=== PATIENT | male | born 1980 | race Caucasian/White ===

== ENCOUNTER 2022-02-17 20:14 | Inpatient (IN) | payer BC ==
[2022-02-06] MEDS: KCL 20 MEQ TAB (K-DUR) PO SCH (06:20)
[~2022-02-17] VITALS: Ht 175.3 cm; Wt 82.5 kg
[2022-02-17] MEDS ORDERED: LACTATED RINGERS 1,000 ML IV ONE (20:30)
[2022-02-17 20:35] LABS: BASOPHILS # (AUTO) 0.1 10^3/uL (0.0-0.1); BASOPHILS % (AUTO) 1 % (0-10); EOSINOPHILS % (AUTO) 2 % (0-10); MEAN CORPUSCULAR HGB CONC 33 g/dL (32-36)
--- NOTE | 2022-02-17 20:37 | ED Trauma-Multisystem ---
General Chief Complaint: Trauma-Non Activation Stated Complaint: LEFT RIB PAIN Source of Information: Patient, EMS History of Present Illness Date Seen by Provider: Feb 17, 2022 Time Seen by Provider: 20:15 Initial Comments PT ARRIVES VIA EMS [place] PT WAS PLAYING SOFTBALL AND COLLIDED WITH ANOTHER PLAYER, AND GOT "KNEED" IN LEFT RIBS/CHEST/UPPER ABDOMEN AREA C/O SEVERE PAIN TO THE AREA HAS PAIN WITH BREATHING BUT DOES NOT ACTUALLY FEEL SHORT OF BREATH HAD NAUSEA AND VOMITED X 1 EMS GAVE ZOFRAN 4 MG AND FENTANYL 100 MCG IV WITH SOME IMPROVEMENT IN SYMPTOMS EMS REPORT O2 SAT 90% ON ROOM AIR, BUT PT WAS BREATHING SHALLOW DUE TO PAIN --O2 SATS UP TO 98% ON 2L/NC NO HEAD INJURY OR LOSS OF CONSCIOUSNESS NO NECK OR BACK PAIN NO EXTREMITY PAIN OR INJURY NO CHRONIC ILLNESSES PCP: SAIMA Allergies and Home Medications Allergies Coded Allergies: No Known Drug Allergies (Unverified , 02/17/22) Patient Home Medication List Home Medication List Reviewed: Yes Docusate Sodium (Colace) 100 Mg Capsule, 100 MG PO BID Prescribed by: VENKAT SIMEON on 02/20/22 1206 Hydrocodone Bit/Acetaminophen (HYDROcodone/APAP 10/325 TABLET) 1 Ea Tab, 1 EA PO Q4H PRN for PAIN-MODERATE (5-7) Prescribed by: VENKAT SIMEON on 02/20/22 1207 Methocarbamol (Methocarbamol) 500 Mg Tablet, 500 MG PO TID Prescribed by: VENKAT SIMEON on 02/20/22 1206 Discontinued Medications Acetaminophen (Tylenol Extra Strength) 500 Mg Tablet, 1,000 MG PO Q8H PRN for PAIN-MILD (1-4), (Reported) Entered as Reported by: PABLO DIALLO on 02/18/22 100 Last Action: Reviewed Ibuprofen (Ibuprofen) 200 Mg Tablet, 400-600 MG PO Q8H PRN for PAIN-MILD (1-4), (Reported) Entered as Reported by: PABLO DIALLO on 02/18/22 100 Last Action: Reviewed Review of Systems Review of Systems Constitutional: no symptoms reported; No dizziness Eyes: No Symptoms Reported Ears: No Symptoms Reported Nose: No Symptoms Reported Mouth: No Symptoms Reported Throat: No Symptoms to Report Respiratory: see HPI Cardiovascular: See HPI Gastrointestinal: see HPI Genitourinary: no symptoms reported Musculoskeletal: no symptoms reported Skin: no symptoms reported Psychiatric/Neurological: No Symptoms Reported Past Xwyzcrj-Duozgl-Rtcnqh Hx Patient Social History Tobacco Use?: No Substance use?: Yes Substance type: Marijuana Substance frequency: Once in a while Alcohol Use?: Yes Alcohol Frequency: Couple times a week Past Medical History Surgeries: Yes (WISDOM TEETH) Respiratory: No Cardiac: No Neurological: No Genitourinary: No Gastrointestinal: No Musculoskeletal: No Endocrine: No HEENT: No Cancer: No Did You Recieve Any Treatments: No Psychosocial: No Integumentary: No Blood Disorders: No Physical Exam Vital Signs Vital Signs - First Documented 02/17/22 20:18 Temp 36.3 Pulse 114 Resp 18 B/P (MAP) 114/76 (89) Pulse Ox 94 Height, Weight, BMI Height: '" Weight: lbs. oz. kg; BMI Method: General Appearance: No Apparent Distress, WD/WN, Other (LOOKS UNCOMFORTABLE, HOLDING LEFT RIB AREA) Head: No Evidence of Injury Eyes: Bilateral Eye Normal Inspection, Bilateral Eye PERRL Ears, Nose, Throat: Hearing Grossly Normal, No Evidence of ENT Injury, No Dental Injury Neck: Full Range of Motion, Normal Inspection, Non Tender, Supple Cardiovascular: Regular Rate, Rhythm, No Edema, No JVD, No Murmur, Normal Peripheral Pulses Respiratory: Normal Breath Sounds, No Accessory Muscle Use, No Respiratory Distress, Other (MARKED TENDERNESS TO LEFT MID AND LOWER RIBS/CHEST AREA--ANTERIOR AND LATERALLY, WITH SPLINTING. NO CREPITANCE, NO SUB Q AIR. NO EXTERNAL EVIDENCE OF TRAUMA. ) Gastrointestinal: Normal Bowel Sounds, No Organomegaly, No Pulsatile Mass, Soft, Tenderness (LEFT UPPER QUADRANT. NO EXTERNAL EVIDENCE OF TRAUMA TO THIS AREA. MUCH GUARDING AND SPLINTING OF AREA) Back: Normal Inspection, No CVA Tenderness, No Vertebral Tenderness Extremity: Normal Capillary Refill, Normal Inspection, Normal Range of Motion, Non Tender, No Calf Tenderness, No Pedal Edema Neurologic/Psychiatric: Alert, Oriented x3, No Motor/Sensory Deficits, institutional cook II- XII Norm as Tested Skin: Normal Color, Warm/Dry Progress/Results/Core Measures Results/Orders Lab Results Laboratory Tests Test 02/17/22 20:26 02/17/22 20:52 Range/Units White Blood Count 9.0 4.3-11.0 10^3/uL Red Blood Count 4.59 4.30-5.52 10^6/uL Hemoglobin 13.8 13.3-17.7 g/dL Hematocrit 42 40-54 % Mean Corpuscular Volume 92 80-99 fL Mean Corpuscular Hemoglobin 30 25-34 pg Mean Corpuscular Hemoglobin Concent 33 32-36 g/dL Red Cell Distribution Width 12.6 10.0-14.5 % Platelet Count 234 130-400 10^3/uL Mean Platelet Volume 9.9 9.0-12.2 fL Immature Granulocyte % (Auto) 1 % Neutrophils (%) (Auto) 75 42-75 % Lymphocytes (%) (Auto) 15 12-44 % Monocytes (%) (Auto) 7 0-12 % Eosinophils (%) (Auto) 2 0-10 % Basophils (%) (Auto) 1 0-10 % Neutrophils # (Auto) 6.7 1.8-7.8 10^3/uL Lymphocytes # (Auto) 1.4 1.0-4.0 10^3/uL Monocytes # (Auto) 0.6 0.0-1.0 10^3/uL Eosinophils # (Auto) 0.2 0.0-0.3 10^3/uL Basophils # (Auto) 0.1 0.0-0.1 10^3/uL Immature Granulocyte # (Auto) 0.1 0.0-0.1 10^3/uL Percent Immature Platelet Fraction 1.2 0.0-7.6 % Sodium Level 139 135-145 MMOL/L Potassium Level 4.7 3.6-5.0 MMOL/L Chloride Level 105 98-107 MMOL/L Carbon Dioxide Level 16 L 21-32 MMOL/L Anion Gap 18 H 5-14 MMOL/L Blood Urea Nitrogen 19 H 7-18 MG/DL Creatinine 1.34 H 0.60-1.30 MG/DL Estimat Glomerular Filtration Rate 69 BUN/Creatinine Ratio 14 Glucose Level 113 H 70-105 MG/DL Calcium Level 9.0 8.5-10.1 MG/DL Corrected Calcium 8.5-10.1 MG/DL Magnesium Level 1.7 1.6-2.4 MG/DL Total Bilirubin 0.7 0.1-1.0 MG/DL Aspartate Amino Transf (AST/SGOT) 35 H 5-34 U/L Alanine Aminotransferase (ALT/SGPT) 22 0-55 U/L Alkaline Phosphatase 55 40-136 U/L Total Creatine Kinase 286 H 30-200 U/L Creatine Kinase MB 3.1 <6.6 NG/ML Myoglobin 131.6 H 10.0-92.0 NG/ML Troponin I < 0.028 <0.028 NG/ML B-Type Natriuretic Peptide 12.8 <100.0 PG/ML Total Protein 7.5 6.4-8.2 GM/DL Albumin 4.7 H 3.2-4.5 GM/DL Serum Alcohol 71 H <10 MG/DL Prothrombin Time 13.1 12.2-14.7 SEC INR Comment 1.0 0.8-1.4 Activated Partial Thromboplast Time 23 L 24-35 SEC My Orders Orders - JOAQUIN ESPANA DO Ed Iv/Invasive Line Start (02/17/22 20:20) Ekg Tracing (02/17/22 20:20) O2 (02/17/22 20:20) Monitor-Rhythm Ecg Trace Only (02/17/22 20:20) Chest 1 View, Ap/Pa Only (02/17/22 20:20) Alcohol (02/17/22 20:20) Bnp Jayesh (02/17/22 20:20) Cbc With Automated Diff (02/17/22 20:20) Comprehensive Metabolic Panel (02/17/22 20:20) Creatine Kinase (02/17/22 20:20) Creatine Kinase Mb (02/17/22 20:20) Drug Screen Stat (Urine) (02/17/22 20:20) Magnesium (02/17/22 20:20) Protime With Inr (02/17/22 20:20) Partial Thromboplastin Time (02/17/22 20:20) Ua Culture If Indicated (02/17/22 20:20) Myoglobin Serum (02/17/22 20:20) Troponin I [place] (02/17/22 20:20) Ed Iv/Invasive Line Start (02/17/22 20:20) Lactated Ringers (Lr 1000 Ml Iv Solution (02/17/22 20:30) Ct Chest/Abdomen/Pelvis W (02/17/22 20:20) Iohexol Injection (Omnipaque 350 Mg/Ml 1 (02/17/22 21:00) Received Contrast (Hold Metformin- Contr (02/17/22 21:00) Ns (Ivpb) (Sodium Chloride 0.9% Ivpb Bag (02/17/22 21:00) Fentanyl Inj (Sublimaze Injection) (02/17/22 21:15) Morphine Injection (Morphine Injection (02/17/22 21:33) Type And Screen (02/17/22 21:44) Medications Given in ED Vital Signs/I&O 02/17/22 20:18 Temp 36.3 Pulse 114 Resp 18 B/P (MAP) 114/76 (89) Pulse Ox 94 Progress Progress Note : Progress Note GIVEN FENTANYL AND MORPHINE FOR PAIN NO DETERIORATION IN PT'S CONDITION DURING ER STAY O2 SATS REMAINED IN UPPER 90'S ON 2L/NC NO HYPOTENSION OR TACHYCARDIA Initial ECG Impression Date: Feb 17, 2022 Initial ECG Impression Time: 20:26 Initial ECG Rate: 71 Initial ECG Rhythm: Normal Sinus Diagnostic Imaging Comments CT CHEST/ABDOMEN/PELVIS--PER RADIOLOGIST REPORT AT 2140 FINDINGS: CT CHEST: The heart is normal in size. There is no pericardial effusion. There is no mediastinal adenopathy. The aorta is normal in caliber. No axillary adenopathy is seen. There is a small left pleural effusion. There is no pneumothorax. There is dependent atelectasis in the lungs. There are anterior left rib fractures of the 5th, 6th, and 7th ribs. There are lateral fractures of the left 11th and 10th ribs. There are posterior fractures of the left 11th, 10th, and 9th ribs. CT ABDOMEN AND PELVIS: The liver demonstrates no focal lesions. The spleen has a small area of hypodensity inferiorly and extending anteriorly, may represent a laceration. No significant surrounding hematoma is seen. The pancreas appears normal. The adrenal glands appear normal. The kidneys demonstrate no enhancing lesions or hydronephrosis. No free fluid or free air is seen. The appendix is normal. The bowel loops are nondistended without obstruction. No acute osseous abnormality is seen. IMPRESSION: 1. Multiple fractures of the left 5th through 11th ribs. Small left pleural effusion. No pneumothorax. 2. Small splenic laceration or contusion. No surrounding hematoma. Departure Communication (Admissions) 2140--SPOKE WITH DR. SIMEON, TRAUMA SURGEON, ACCEPTS PT FOR ADMIT. ORDERS NOTED. 2147--REPORT GIVEN TO E-ICU PHYSICIAN. ALSO SPOKE WITH Mariella ALLEN REGARDING THORACIC BLOCK VS EPIDURAL-- HE WILL DISCUSS WITH DR. THOMAS, ANESTHESIOLOGIST, WHO PERFORMS THORACIC EPIDURALS. Impression Primary Impression: BLUNT TRAUMA TO CHEST AND ABDOMEN Additional Impressions: PLEURAL EFFUSION ON CT SUPECTED PULMONARY CONTUSION Closed injury of spleen MULTIPLE LEFT RIB FRACTURES Alcohol intoxication Illicit drug use Marijuana use Disposition: ADMITTED INPATIENT Condition: Stable Admissions Decision to Admit Reason: Admit from ER (Trauma) Decision to Admit/Date: Feb 17, 2022 Time/Decision to Admit Time: 21:45 Departure-Patient Inst. Referrals: BJORN QUARLES DO (PCP/Family) Primary Care Physician Scripts Docusate Sodium (Colace) 100 Mg Capsule 100 MG PO BID, #30 CAP Prov: VENKAT SIMEON DO 02/20/22 Hydrocodone Bit/Acetaminophen (HYDROcodone/APAP 10/325 TABLET) 1 Ea Tab 1 EA PO Q4H PRN for PAIN-MODERATE (5-7), #30 TAB Prov: VENKAT SIMEON DO 02/20/22 Methocarbamol (Methocarbamol) 500 Mg Tablet 500 MG PO TID, #30 TAB Prov: VENKAT SIMEON DO 02/20/22 JOAQUIN ESPANA DO Feb 17, 2022 20:37
[2022-02-17 20:41] LABS: ALBUMIN 4.7 GM/DL (3.2-4.5); CHLORIDE 105 MMOL/L (98-107); POTASSIUM 4.7 MMOL/L (3.6-5.0); SODIUM 139 MMOL/L (135-145)
[2022-02-17 20:44] LABS: GLUCOSE 113 MG/DL (70-105); TOTAL PROTEIN 7.5 GM/DL (6.4-8.2)
[2022-02-17 20:45] LABS: BILIRUBIN,TOTAL 0.7 MG/DL (0.1-1.0); CARBON DIOXIDE 16 MMOL/L (21-32)
[2022-02-17 20:47] LABS: ALKALINE PHOSPHATASE 55 U/L (40-136)
[2022-02-17 20:48] LABS: CREATININE SERUM 1.34 MG/DL (0.60-1.30); GFR ESTIMATED 69
[2022-02-17 20:49] LABS: BUN/CREATININE RATIO 14
[2022-02-17 20:51] LABS: ALANINE AMINOTRANSFERASE 22 U/L (0-55); CREATINE KINASE 286 U/L (30-200); MAGNESIUM 1.7 MG/DL (1.6-2.4)
[2022-02-17 20:58] LABS: CREATINE KINASE MB 3.1 NG/ML (<6.6); EOSINOPHILS # (AUTO) 0.2 10^3/uL (0.0-0.3); HEMATOCRIT 42 % (40-54); HEMOGLOBIN 13.8 g/dL (13.3-17.7); LYMPHOCYTES # (AUTO) 1.4 10^3/uL (1.0-4.0); LYMPHOCYTES % (AUTO) 15 % (12-44); MEAN CORPUSCULAR HEMOGLOBIN 30 pg (25-34); MEAN CORPUSCULAR VOLUME 92 fL (80-99); MEAN PLATELET VOLUME 9.9 fL (9.0-12.2); MONOCYTES # (AUTO) 0.6 10^3/uL (0.0-1.0); MONOCYTES % (AUTO) 7 % (0-12); NEUTROPHILS # (AUTO) 6.7 10^3/uL (1.8-7.8); NEUTROPHILS % (AUTO) 75 % (42-75); PLATELET COUNT 234 10^3/uL (130-400)
[2022-02-17] MEDS ORDERED: IOHEXOL 350 MG/ML 100 ML (OMNIPAQUE 350) VIAL IV ONE (21:00)
[2022-02-17] MEDS ORDERED: NS 100 ML (IVPB) BAG IV ONE (21:00)
[2022-02-17] MEDS ORDERED: HOLD METFORMIN - RECEIVED CONTRAST 20 ML VIAL IV SCH (21:00)
[2022-02-17 21:14] LABS: PROTHROMBIN TIME PATIENT 13.1 SEC (12.2-14.7)
[2022-02-17] MEDS ORDERED: fentaNYL INJ 100 MCG/2 ML AMP IVP PRN (21:15)
[2022-02-17] MEDS ORDERED: morphine INJ 10 MG/ML 1ML (SYR OR VIAL) IVP STA (21:33)
--- NOTE | 2022-02-17 21:39 | Diagnostic Imaging Report ---
PROCEDURE: CT chest, abdomen, and pelvis with contrast. TECHNIQUE: Multiple contiguous axial images were obtained through the chest, abdomen, and pelvis after the administration of intravenous contrast. Auto Exposure Controls were utilized during the CT exam to meet ALARA standards for radiation dose reduction. INDICATION: Trauma, left chest and abdominal pain COMPARISON: None FINDINGS: CT CHEST: The heart is normal in size. There is no pericardial effusion. There is no mediastinal adenopathy. The aorta is normal in caliber. No axillary adenopathy is seen. There is a small left pleural effusion. There is no pneumothorax. There is dependent atelectasis in the lungs. There are anterior left rib fractures of the 5th, 6th, and 7th ribs. There are lateral fractures of the left 11th and 10th ribs. There are posterior fractures of the left 11th, 10th, and 9th ribs. CT ABDOMEN AND PELVIS: The liver demonstrates no focal lesions. The spleen has a small area of hypodensity inferiorly and extending anteriorly, may represent a laceration. No significant surrounding hematoma is seen. The pancreas appears normal. The adrenal glands appear normal. The kidneys demonstrate no enhancing lesions or hydronephrosis. No free fluid or free air is seen. The appendix is normal. The bowel loops are nondistended without obstruction. No acute osseous abnormality is seen. IMPRESSION: 1. Multiple fractures of the left 5th through 11th ribs. Small left pleural effusion. No pneumothorax. 2. Small splenic laceration or contusion. No surrounding hematoma. Dictated by: Dictated on workstation # [id number]
--- NOTE | 2022-02-17 21:40 | Diagnostic Imaging Report ---
HISTORY: Trauma, left rib pain TECHNIQUE: Frontal view of the chest. COMPARISON: CT from the same day. FINDINGS: The lung volumes are low. No consolidation is seen. No large effusion or pneumothorax is seen. The small left effusion is better seen on the prior CT. There is a mildly displaced lateral left 10th rib fracture. The other left rib fractures are better seen on the prior CT. IMPRESSION: 1. Displaced lateral left 10th rib fracture. Other rib fractures and small effusion are better seen on the prior CT. Dictated by: Dictated on workstation # [id number]
[2022-02-17 22:29] LABS: BILIRUBIN,URINE NEGATIVE (NEGATIVE); CLARITY,URINE CLEAR; COLOR,URINE YELLOW; GLUCOSE, URINE (UA) NEGATIVE (NEGATIVE); KETONES,URINE NEGATIVE (NEGATIVE); LEUKOCYTE ESTERASE ,URINE NEGATIVE (NEGATIVE); NITRITE,URINE NEGATIVE (NEGATIVE); PROTEIN,URINE TRACE (NEGATIVE)
[2022-02-17 22:36] LABS: BACTERIA,URINE NEGATIVE /HPF; SQUAMOUS EPITHELIAL CELL,UR 0-2 /HPF
[2022-02-17 22:41] LABS: AMPHETAMINE SCREEN, URINE NEGATIVE (NEGATIVE); BARBITURATE SCREEN URINE NEGATIVE (NEGATIVE); BENZODIAZEPINES SCREEN URINE NEGATIVE (NEGATIVE); CANNABINOID SCREEN, URINE POSITIVE (NEGATIVE); COCAINE SCREEN URINE NEGATIVE (NEGATIVE); METHADONE STAT NEGATIVE (NEGATIVE); METHAMPHETAMINE SCREEN URINE S NEGATIVE (NEGATIVE); OPIATE SCREEN URINE NEGATIVE (NEGATIVE); OXYCODONE STAT NEGATIVE (NEGATIVE); PROPOXYPHENE STAT NEGATIVE (NEGATIVE); TRICYCLIC ANTIDEPRESSANTS SCRE NEGATIVE (NEGATIVE)
--- NOTE | 2022-02-17 22:49 | Tele-ICU Progress Note ---
Subjective Date Seen by a Provider: Feb 17, 2022 Time Seen by a Provider: 22:35 Subjective/Events-last exam This virtual visit was conducted using real time audio/video. Thank you for asking us to see this patient for respiratory distress due to multiple L rib #s with flail segment. Recent events: Received knee to chest during softball game. PMH: None SH: smoking history N FH: Non-contributory ROS: as in HPI PE: VSS. O2 sat 94% on RA, 98% on 2 LPM NC. HEENT: No obvious masses, adenopathy or JVD. Chest: clear to auscultation. CV: RRR S1 S2 No murmur or added sounds. Abd: Non-tender. Bowel sounds Y. : Unremarkable. Gleason N. SERVICE CAR OPERATOR/psychiatric: Grossly intact. No obvious focal findings. Extremities: No edema. Capillary refill < 3 seconds. Skin: unremarkable. Results: Elevated BUN 19, Creat 1.35, EtOH 71. CXR: rib #s. Available chart/ vitals / labs / images reviewed. Video assessment done using teleICU camera, rest of exam as per RN. A/P: Respiratory insufficiency: Continue present management with NC. To receive thoracic block. Monitor for increasing oxygenation needs and/or need for intubation. Critical Care: critically ill patient. Cont. PRN Fentanyl, IVF. Discussed with FAIZA DUEÑAS MD. Asked RN to reach out to eICU if any questions or concerns later. Time spent with patient/coordination of care with other health professionals (mins): 22 Sepsis Event Evaluation Height, Weight, BMI Height: '" Weight: lbs. oz. kg; 25.00 BMI Method: Exam Exam Patient acknowledged, consented, and participated in this virtual visit which was conducted using real time audio/video Vital Signs Date Time Temp Pulse Resp B/P (MAP) Pulse Ox O2 Delivery O2 Flow Rate FiO2 02/17/22 20:18 36.3 114 18 114/76 (89) 94 Height & Weight Height: '" Weight: lbs. oz. kg; 25.00 BMI Method: General Appearance: No Apparent Distress, WD/WN, Other (LOOKS UNCOMFORTABLE, HOLDING LEFT RIB AREA) Neck: Full Range of Motion, Normal Inspection, Non Tender, Supple Respiratory: Normal Breath Sounds, No Accessory Muscle Use, No Respiratory Distress, Other (MARKED TENDERNESS TO LEFT MID AND LOWER RIBS/CHEST AREA--ANTERIOR AND LATERALLY, WITH SPLINTING. NO CREPITANCE, NO SUB Q AIR. NO EXTERNAL EVIDENCE OF TRAUMA. ) Cardiovascular: Regular Rate, Rhythm, No Edema, No JVD, No Murmur, Normal Peripheral Pulses Extremity: Normal Capillary Refill, Normal Inspection, Normal Range of Motion, Non Tender, No Calf Tenderness, No Pedal Edema Neurologic/Psychiatric: Alert, Oriented x3, No Motor/Sensory Deficits, dress cap maker II- XII Norm as Tested Skin: Normal Color, Warm/Dry Results Lab Laboratory Tests 02/17/22 20:26 Assessment/Plan Assessment/Plan See free text. Critical Care: Critically Ill Patient AUGIE MARTINEZ MD Feb 17, 2022 22:49
[2022-02-17] MEDS ORDERED: D5 1/2 NS W/KCL 20 MEQ/L 1,000 ML IV ONE (23:01)
[2022-02-17] MEDS: D5 1/2 NS W/KCL 20 MEQ/L 1,000 ML IV SCH (23:20)
[2022-02-17 23:26] VITALS: BP 114/76
[2022-02-17] MEDS ORDERED: METHOCARBAMOL 500 MG (ROBAXIN) TABLET PO SCH (23:30)
[2022-02-17] MEDS ORDERED: D5 1/2 NS W/KCL 20 MEQ/L 1,000 ML IV SCH (23:30)
[2022-02-17] MEDS ORDERED: ONDANSETRON 4 MG/2 ML (SDV) Z0FRAN IVP PRN (23:30)
[2022-02-17] MEDS ORDERED: morphine INJ 4 MG/ML 1 ML (VIAL/SYRINGE) IVP PRN (23:30)
[2022-02-17] MEDS ORDERED: RT-ALBUTEROL/IPRATROPIUM 3 ML (DUONEB) VIAL INH PRN (23:45)
[2022-02-18] MEDS: METHOCARBAMOL 500 MG (ROBAXIN) TABLET PO SCH ×5 (00:01→20:55)
[2022-02-18] MEDS: morphine INJ 4 MG/ML 1 ML (VIAL/SYRINGE) IV PRN ×7 (01:58→22:10)
[2022-02-18 04:48] LABS: BASOPHILS % (AUTO) 0 % (0-10); EOSINOPHILS # (AUTO) 0.1 10^3/uL (0.0-0.3); EOSINOPHILS % (AUTO) 0 % (0-10); HEMATOCRIT 41 % (40-54); HEMOGLOBIN 13.6 g/dL (13.3-17.7); LYMPHOCYTES # (AUTO) 1.4 10^3/uL (1.0-4.0); LYMPHOCYTES % (AUTO) 12 % (12-44); MEAN CORPUSCULAR HEMOGLOBIN 30 pg (25-34); MEAN CORPUSCULAR HGB CONC 33 g/dL (32-36); MEAN CORPUSCULAR VOLUME 92 fL (80-99); MEAN PLATELET VOLUME 10.3 fL (9.0-12.2); MONOCYTES # (AUTO) 0.9 10^3/uL (0.0-1.0); MONOCYTES % (AUTO) 8 % (0-12); NEUTROPHILS # (AUTO) 8.9 10^3/uL (1.8-7.8); NEUTROPHILS % (AUTO) 78 % (42-75); PLATELET COUNT 223 10^3/uL (130-400); WHITE BLOOD COUNT 11.3 10^3/uL (4.3-11.0)
[2022-02-18 04:56] LABS: ALBUMIN 4.1 GM/DL (3.2-4.5); POTASSIUM 4.2 MMOL/L (3.6-5.0)
[2022-02-18 04:57] LABS: CALCIUM 8.4 MG/DL (8.5-10.1)
[2022-02-18 04:58] LABS: TOTAL PROTEIN 6.3 GM/DL (6.4-8.2)
[2022-02-18 05:00] LABS: BILIRUBIN,TOTAL 1.2 MG/DL (0.1-1.0)
[2022-02-18 05:01] LABS: PHOSPHORUS 3.8 MG/DL (2.3-4.7)
[2022-02-18 05:02] LABS: CREATININE SERUM 0.84 MG/DL (0.60-1.30)
[2022-02-18 05:05] LABS: MAGNESIUM 1.9 MG/DL (1.6-2.4)
[2022-02-18] MEDS: POTASSIUM CL 10MEQ/50ML IVPB 50 ML IV SCH (05:17)
[2022-02-18] MEDS: MAGNESIUM 1 GM/100 ML IVPB 100 ML IV SCH (05:17)
[2022-02-18] MEDS: KCL 20 MEQ TAB (K-DUR) PO SCH (05:18)
[2022-02-18] MEDS: D5 1/2 NS W/KCL 20 MEQ/L 1,000 ML IV SCH ×2 (05:46→11:54)
--- NOTE | 2022-02-18 07:48 | Diagnostic Imaging Report ---
INDICATION: Trauma with left rib pain. Comparison with 02/17/2022. FINDINGS: Portable chest. The lungs are well aerated and clear. Heart is not enlarged. No pneumothorax or pleural effusion. The mildly displaced distal left 10th rib fracture is again demonstrated unchanged. IMPRESSION: Left 10th rib fracture again noted with no appreciable change since previous exam. Dictated by: Dictated on workstation # [id number]
--- NOTE | 2022-02-18 08:37 | History & Physical-Surgical ---
ANITA FRYE 02/18/22 0837: History of Present Illness History of Present Illness Reason for visit/HPI CC: Left rib pain HPI: Mr. Henning is a 41 year old male with no significant past medical history who presented to the ED 02/17/2022 after a collision with another player in a softball game. Patient reports he was hit in his left torso with another player's knee. He reports sharp pain at the time of impact and rated it as a 10/10 at that time. This morning he reports the pain has been constant and sharp but it will occasionally go away if he holds still. He reports movement and deep breathing makes his pain worse. Medicine given to him at the hospital makes it better. He denies any associated symptoms at this time; he reported nausea in the ambulance. He denies radiation of the pain, it is localized to his left ribs. He reports the pain has been improving since the initial event but it is still an 8/10. Date of Admission Feb 17, 2022 at 21:45 Date Seen by a Provider: Feb 18, 2022 Time Seen by a Provider: 07:30 I consulted on this patient on 02/18/22 08:31 Attending Physician Venkat Simeon DO Admitting Physician Kaitlynn Sylvester DO Consult Allergies and Home Medications Allergies Coded Allergies: No Known Drug Allergies (Unverified , 02/17/22) Patient Home Medication List Acetaminophen (Tylenol Extra Strength) 500 Mg Tablet, 1,000 MG PO Q8H PRN for PAIN-MILD (1-4), (Reported) Entered as Reported by: PABLO DIALLO on 02/18/22 1003 Last Action: Reviewed Ibuprofen (Ibuprofen) 200 Mg Tablet, 400-600 MG PO Q8H PRN for PAIN-MILD (1-4), (Reported) Entered as Reported by: PABLO DIALLO on 02/18/22 1003 Last Action: Reviewed Past Haccnwi-Texucz-Qrkduj Hx Patient Social History Number of Children: 2 Tobacco Use?: Yes (Vaped for 5 months. Quit 8 months ago.) Smoking Status: Former Smoker Smokeless Tobacco Frequency: Never a User Use of E-Cig and/or Vaping dev: Yes Substance use?: Yes Substance type: Marijuana (1x per day for 6 months) Substance frequency: Daily Alcohol Use?: Yes Alcohol type: Beer Alcohol Frequency: Couple times a week (Drinks 3x per week. Reports drinking 6- 12 beers per sitting.) Pt feels they are or have been: No Immunizations Up To Date Tetanus Booster (TDap): Less Than 5 Years Current Status Advance Directives: No Communicates: Verbally Primary Language: Somali Preferred Spoken Language: Somali Is interpretation needed?: No Implanted or Applied Medical D: None Past Medical History Asthma (Patient reports "grown out of it") Did You Recieve Any Treatments: No Blood Disorders: No Wisom teeth surgery. Family Medical History No Pertinent Family Hx (Patient reports mother, father, and children are in good health and denies family history. No siblings.) Review of Systems Constitutional: No chills, No dizziness, No fever, No weakness EENTM: No blurred vision, No vision loss Respiratory: No cough, No dyspnea on exertion, No short of breath Cardiovascular: No chest pain (Denies cardiac chest pain. Has MSK chest pain.), No palpitations Gastrointestinal: No abdominal pain, No nausea, No vomiting Musculoskeletal: muscle pain (Left chest around ribs 5-11), muscle stiffness Physical Exam Vital Signs Vital Signs - First Documented 02/17/22 02/17/22 02/17/22 20:18 22:55 23:26 Temp 36.3 Pulse 114 Resp 18 B/P (MAP) 114/76 (89) Pulse Ox 94 O2 Delivery Nasal Cannula O2 Flow Rate 2.00 FiO2 21 Capillary Refill : Height, Weight, BMI Height: '" Weight: lbs. oz. kg; 24.92 BMI Method: General Appearance: No Apparent Distress (Occasionally winces with movement.), WD/WN HEENT: PERRL/EOMI, Moist Mucous Membranes; No Pale Conjunctivae (L), No Pale Conjunctivae (R), No Scleral Icterus (L), No Scleral Icterus (R) Neck: Normal Inspection, Non Tender, Supple; No Lymphadenopathy (L), No Lymphadenopathy (R) Respiratory: Lungs Clear, Normal Breath Sounds, No Accessory Muscle Use, No Respiratory Distress, Other (Pain over left chest wall) Cardiovascular: Regular Rate, Rhythm, No Edema, Normal Peripheral Pulses Gastrointestinal: Normal Bowel Sounds, No Organomegaly, No Pulsatile Mass, Non Tender, Soft Extremity: Normal Inspection, Non Tender, No Pedal Edema Neurologic/Psychiatric: Alert, Oriented x3, No Motor/Sensory Deficits, Normal 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, 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 Skin: Normal Color, Warm/Dry Lymphatic: No Adenopathy (Head and neck) Data Review Labs Laboratory Tests 02/17/22 20:26: White Blood Count 9.0, Red Blood Count 4.59, Hemoglobin 13.8, Hematocrit 42, Mean Corpuscular Volume 92, Mean Corpuscular Hemoglobin 30, Mean Corpuscular Hemoglobin Concent 33, Red Cell Distribution Width 12.6, Platelet Count 234, Mean Platelet Volume 9.9, Immature Granulocyte % (Auto) 1, Neutrophils (%) (Auto) 75, Lymphocytes (%) (Auto) 15, Monocytes (%) (Auto) 7, Eosinophils (%) (Auto) 2, Basophils (%) (Auto) 1, Neutrophils # (Auto) 6.7, Lymphocytes # (Auto) 1.4, Monocytes # (Auto) 0.6, Eosinophils # (Auto) 0.2, Basophils # (Auto) 0.1, Immature Granulocyte # (Auto) 0.1, Percent Immature Platelet Fraction 1.2, Sodium Level 139, Potassium Level 4.7, Chloride Level 105, Carbon Dioxide Level 16L, Anion Gap 18H, Blood Urea Nitrogen 19H, Creatinine 1.34H, Estimat Glomerular Filtration Rate 69, BUN/Creatinine Ratio 14, Glucose Level 113H, Calcium Level 9.0, Corrected Calcium , Magnesium Level 1.7, Total Bilirubin 0.7, Aspartate Amino Transf (AST/SGOT) 35H, Alanine Aminotransferase (ALT/SGPT) 22, Alkaline Phosphatase 55, Total Creatine Kinase 286H, Creatine Kinase MB 3.1, Myoglobin 131.6H, Troponin I < 0.028, B-Type Natriuretic Peptide 12.8, Total Protein 7.5, Albumin 4.7H, Serum Alcohol 71H 02/17/22 20:52: Prothrombin Time 13.1, INR Comment 1.0, Activated Partial Thromboplast Time 23L 02/17/22 22:22: Urine Color YELLOW, Urine Clarity CLEAR, Urine pH 6.0, Urine Specific [place] 1.010L, Urine Protein TRACEH, Urine Glucose (UA) NEGATIVE, Urine Ketones NEGATIVE, Urine Nitrite NEGATIVE, Urine Bilirubin NEGATIVE, Urine Urobilinogen 0.2, Urine Leukocyte Esterase NEGATIVE, Urine RBC (Auto) 3+H, Urine RBC 2-5H, Urine WBC NONE, Urine Squamous Epithelial Cells 0-2, Urine Crystals NONE, Urine Bacteria NEGATIVE, Urine Casts NONE, Urine Mucus NEGATIVE, Urine Culture Indicated NO, Urine Opiates Screen NEGATIVE, Urine Oxycodone Screen NEGATIVE, Urine Methadone Screen NEGATIVE, Urine Propoxyphene Screen NEGATIVE, Urine Barbiturates Screen NEGATIVE, Ur Tricyclic Antidepressants Screen NEGATIVE, Urine Phencyclidine Screen NEGATIVE, Urine Amphetamines Screen NEGATIVE, Urine Methamphetamines Screen NEGATIVE, Urine Benzodiazepines Screen NEGATIVE, Urine Cocaine Screen NEGATIVE, Urine Cannabinoids Screen POSITIVEH 02/18/22 04:17: White Blood Count 11.3H, Red Blood Count 4.50, Hemoglobin 13.6, Hematocrit 41, Mean Corpuscular Volume 92, Mean Corpuscular Hemoglobin 30, Mean Corpuscular Hemoglobin Concent 33, Red Cell Distribution Width 12.7, Platelet Count 223, Mean Platelet Volume 10.3, Immature Granulocyte % (Auto) 0, Neutrophils (%) (Auto) 78H, Lymphocytes (%) (Auto) 12, Monocytes (%) (Auto) 8, Eosinophils (%) (Auto) 0, Basophils (%) (Auto) 0, Neutrophils # (Auto) 8.9H, Lymphocytes # (Auto) 1.4, Monocytes # (Auto) 0.9, Eosinophils # (Auto) 0.1, Basophils # (Auto) 0.0, Immature Granulocyte # (Auto) 0.0, Sodium Level 139, Potassium Level 4.2, Chloride Level 105, Carbon Dioxide Level 21, Anion Gap 13, Blood Urea Nitrogen 13, Creatinine 0.84, Estimat Glomerular Filtration Rate 113, BUN/Creatinine Ratio 15, Glucose Level 124H, Calcium Level 8.4L, Corrected Calcium 8.3L, Magnesium Level 1.9, Total Bilirubin 1.2H, Aspartate Amino Transf (AST/SGOT) 24, Alanine Aminotransferase (ALT/SGPT) 19, Alkaline Phosphatase 48, Total Protein 6.3L, Albumin 4.1, Phosphorus Level 3.8 Radiology Date of Exam:02/17/22 CT CHEST/ABDOMEN/PELVIS W PROCEDURE: CT chest, abdomen, and pelvis with contrast. TECHNIQUE: Multiple contiguous axial images were obtained through the chest, abdomen, and pelvis after the administration of intravenous contrast. Auto Exposure Controls were utilized during the CT exam to meet ALARA standards for radiation dose reduction. INDICATION: Trauma, left chest and abdominal pain COMPARISON: None FINDINGS: CT CHEST: The heart is normal in size. There is no pericardial effusion. There is no mediastinal adenopathy. The aorta is normal in caliber. No axillary adenopathy is seen. There is a small left pleural effusion. There is no pneumothorax. There is dependent atelectasis in the lungs. There are anterior left rib fractures of the 5th, 6th, and 7th ribs. There are lateral fractures of the left 11th and 10th ribs. There are posterior fractures of the left 11th, 10th, and 9th ribs. CT ABDOMEN AND PELVIS: The liver demonstrates no focal lesions. The spleen has a small area of hypodensity inferiorly and extending anteriorly, may represent a laceration. No significant surrounding hematoma is seen. The pancreas appears normal. The adrenal glands appear normal. The kidneys demonstrate no enhancing lesions or hydronephrosis. No free fluid or free air is seen. The appendix is normal. The bowel loops are nondistended without obstruction. No acute osseous abnormality is seen. IMPRESSION: 1. Multiple fractures of the left 5th through 11th ribs. Small left pleural effusion. No pneumothorax. 2. Small splenic laceration or contusion. No surrounding hematoma. Assessment/Plan Assessment/Plan Admission Diagonsis Splenic laceration Rib fractures Left pleural effusion Excessive alcohol use Substance use Assessment/Plan Assessment: Splenic laceration - Likely grade I laceration - No obvious signs of hematoma or acute bleeding Rib fractures - Left ribs 5-11. CT confirmed - No signs of flail chest or other acute abnormalities Leukocytosis - Elevated WBC at 11.3 d/t acute trauma. - Trend Left pleural effusion - Small, confirmed on CXR. - Continue to monitor. No signs of pneumothorax Excessive alcohol use Substance use Plan: Continue IVF and pain control as needed. Currently receiving Lortab, methocarbamol, and morphine. Anesthesia has been consulted regarding epidural for pain relief Encourage ambulation and ICS to help prevent pneumonia or atelectasis SCD for DVT ppx. Hold anticoagulation d/t splenic laceration Monitor Hgb level closely and watch for signs of acute bleed d/t splenic laceration Conservative management for splenic laceration at this time. No surgical intervention needed at this time. Anticipate inpatient stay of > 2 days at this time. Consider moving from ICU to 4th floor tomorrow depending on patient status at that time. VENKAT SIMEON DO 4/6/22 2008: History of Present Illness History of Present Illness Reason for visit/HPI Chief complaint collision playing softball. Patient is a 41-year-old male who was playing softball who was running after a fly ball in the shallow center field when he was playing shortstop. Patient collided with the center Fielder whose knee seem to hit his left side. He denies loss of consciousness. He had sharp pain that he states was a 10 out of 10 pain. Patient the pain is constant. Movement makes it worse. Holding still makes it better. Taking big deep breaths also causes more discomfort. Patient was seen in the emergency department by ambulance where he had work-up in the emergency department consisting of a chest x-ray and a CT scan of the chest abdomen pelvis. Patient was found to have left rib fractures 5 through 11 and a splenic laceration that appears to be grade 1. Patient states that his pain is slightly improved this morning, as long as he is not moving. His white blood cell count slightly increased. Patient hemoglobin stable. Date Seen by a Provider: Feb 18, 2022 Time Seen by a Provider: 07:50 Allergies and Home Medications Allergies Coded Allergies: No Known Drug Allergies (Unverified , 02/17/22) Patient Home Medication List Home Medication List Reviewed: Yes Acetaminophen (Tylenol Extra Strength) 500 Mg Tablet, 1,000 MG PO Q8H PRN for PAIN-MILD (1-4), (Reported) Entered as Reported by: PABOL DIALLO on 02/18/22 1003 Last Action: Reviewed Ibuprofen (Ibuprofen) 200 Mg Tablet, 400-600 MG PO Q8H PRN for PAIN-MILD (1-4), (Reported) Entered as Reported by: PABLO DIALLO on 02/18/22 1003 Last Action: Reviewed Past Evjcrok-Frcgvy-Xiveuo Hx Patient Social History Tobacco Use?: Yes (Vaped for 5 months. Quit 8 months ago.) Use of E-Cig and/or Vaping dev: Yes Substance type: Marijuana (1x per day for 6 months) Alcohol Frequency: Couple times a week (Drinks 3x per week. Reports drinking 6- 12 beers per sitting.) Family Medical History Reviewed Nursing Family Hx No Pertinent Family Hx (Patient reports mother, father, and children are in good health and denies family history. No siblings.) Review of Systems Constitutional: No chills, No fever, No weakness EENTM: No blurred vision, No vision loss Respiratory: No cough, No dyspnea on exertion, No short of breath Cardiovascular: No chest pain (Denies cardiac chest pain. Has MSK chest pain.), No palpitations Gastrointestinal: No abdominal pain, No nausea, No vomiting Musculoskeletal: muscle pain (Left chest around ribs 5-11), muscle stiffness Skin: No change in color, No change in hair/nails Psychiatric/Neurological: Denies Anxiety, Denies Depressed, Denies Emotional Problems All Other Systems Reviewed Negative Unless Noted: Yes (Negative excepted noted.) Physical Exam General Appearance: No Apparent Distress (Occasionally winces with movement.), WD/WN HEENT: PERRL/EOMI, Normal ENT Inspection Neck: Normal Inspection, Non Tender, Supple Respiratory: No Chest Non Tender; No Accessory Muscle Use, No Respiratory Distress, Other (Pain over left chest wall) Cardiovascular: Regular Rate, Rhythm, No JVD Gastrointestinal: No Organomegaly, Non Tender, Soft Rectal: Deferred Back: No Vertebral Tenderness, Other (Left chest wall tenderness) Extremity: Normal Inspection, Non Tender Neurologic/Psychiatric: Alert, Oriented x3, No Motor/Sensory Deficits, Normal Mood/Affect, 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 Will stay here for at least 2 midnights for adequate pain relief and continue monitoring of splenic laceration. Assessment/Plan Collision while playing softball splenic laceration appears to be grade 1 Rib fractures left side 5 through 11 Left pleural effusion Excessive alcohol use Substance use Continue IVF and pain control as needed. Currently receiving Lortab, methocarbamol, and morphine. Anesthesia has been consulted regarding thoracic epidural or block for pain relief Encourage incentive spirometer to help prevent pneumonia or atelectasis SCD for DVT ppx. Hold anticoagulation d/t splenic laceration Monitor Hgb level closely and watch for signs of acute bleed d/t splenic laceration hemoglobin stable at this time. Conservative management for splenic laceration at this time. No surgical intervention needed at this time. Advance diet Appreciate tele-ICU consult Supervisory-Addendum Brief Verification & Attestation Participated in pt care: history, MDM, physical Personally performed: exam, history, MDM, supervision of care Care discussed with: Medical Student Procedures: n/a Results interpretation: Verified all documentation Verification and Attestation of Medical Student E/M Service A medical student performed and documented this service in my presence. I reviewed and verified all information documented by the medical student and made modifications to such information, when appropriate. I personally performed the physical exam and medical decision making. Venkat Simeon, Feb 18, 2022,20:15 ANITA FRYE Feb 18, 2022 08:37 VENKAT SIMEON DO Feb 18, 2022 20:08
--- NOTE | 2022-02-18 10:01 | Tele-ICU Progress Note ---
Subjective Date Seen by a Provider: Feb 18, 2022 Time Seen by a Provider: 10:00 Subjective/Events-last exam (Tele-ICU Physician , Progress Note ) Available chart/ vitals / labs / Images reviewed Video assessment done using teleICU camera, rest of exam as per RN Discussed with RN , EXAM PER RN Events overnight : Afebrile FiO2 - 2l I/O = Drips: 150 Pressors: , hemodynamically stable Consultants: Hospital course: (02/17) 41y M s/p softball game where he got knee to chest post collision. ADMIT DX: Multiple L. rib fractures, pulmonary contusion, splenic injury, pleural effusion on CT. A/P Acute respiratory failure due to multiple L EFT ribs ( 5th through 11th with flail segment - no PTX - pain control ( po and IV ) - IS -wean off O2 MARIANO - resolved with Hydration - decrease IVF - follow ( can stop if no n/v with pain meds Left effusion - small , monitor , no susp for hemothorax now Small splenic laceration or contusion - as per sx . monitor Lines : (Central Line Necessity Reviewed) Gleason: OG: Nutrition: po Analgesia: Anxiety/ delirium VTE Prophylaxis: SCD Stress Ulcer Prophylaxis: po Plans in collaboration with bedside consultants and IM MDs. Discussed with RN to reach out if any questions or concerns A total of 31 minutes of critical care time was devoted to this patient today, required to treat and/or prevent further deterioration of critical care condition ( as above) Sepsis Event Evaluation Height, Weight, BMI Height: '" Weight: lbs. oz. kg; 24.92 BMI Method: Exam Exam Patient acknowledged, consented, and participated in this virtual visit which was conducted using real time audio/video Vital Signs Date Time Temp Pulse Resp B/P (MAP) Pulse Ox O2 Delivery O2 Flow Rate FiO2 02/18/22 09:41 95 02/18/22 09:00 48 7 125/84 96 Nasal Cannula 2.00 02/18/22 08:00 36.3 02/18/22 08:00 55 12 122/89 100 Nasal Cannula 2.00 02/18/22 07:00 54 8 119/77 95 Nasal Cannula 2.00 02/18/22 07:00 57 02/18/22 06:00 52 118/73 96 Nasal Cannula 2.00 02/18/22 05:00 60 28 120/92 98 Nasal Cannula 2.00 02/18/22 04:45 52 33 112/80 99 02/18/22 04:30 53 122/75 97 02/18/22 04:15 60 121/82 98 02/18/22 04:00 97 Nasal Cannula 2.00 02/18/22 04:00 36.7 02/18/22 04:00 54 29 109/70 97 Nasal Cannula 2.00 02/18/22 03:45 52 67 113/82 98 02/18/22 03:30 53 114/72 97 02/18/22 03:15 52 19 119/75 97 02/18/22 03:00 54 39 114/75 95 Nasal Cannula 2.00 02/18/22 02:45 75 121/74 97 02/18/22 02:30 54 29 118/75 96 02/18/22 02:15 55 114/71 93 02/18/22 02:00 69 125/82 99 Nasal Cannula 2.00 02/18/22 01:45 61 125/91 98 02/18/22 01:30 56 109/75 97 02/18/22 01:15 59 10 116/73 95 02/18/22 01:00 54 02/18/22 01:00 54 11 109/79 97 Nasal Cannula 2.00 02/18/22 00:45 57 119/76 96 02/18/22 00:30 61 114/74 96 Nasal Cannula 2.00 02/18/22 00:15 59 117/71 97 Nasal Cannula 2.00 02/18/22 00:00 97 Nasal Cannula 2.00 02/18/22 00:00 56 115/70 98 Nasal Cannula 2.00 02/17/22 23:45 61 57 112/70 88 Nasal Cannula 2.00 02/17/22 23:30 71 117/74 93 Nasal Cannula 2.00 02/17/22 23:26 36.3 114 94 21 02/17/22 23:15 71 118/76 91 Nasal Cannula 2.00 02/17/22 23:00 75 15 92 Nasal Cannula 2.00 02/17/22 22:59 36.8 67 15 127/70 92 Nasal Cannula 2.00 02/17/22 22:57 76 02/17/22 22:55 98 Nasal Cannula 2.00 02/17/22 22:45 69 15 111/72 93 02/17/22 20:18 36.3 114 18 114/76 (38) 94 I & O 02/18/22 07:00 Intake Total 2960 ml Output Total 1575 ml Balance 1385 ml Height & Weight Height: '" Weight: lbs. oz. kg; 24.92 BMI Method: General Appearance: No Apparent Distress (Occasionally winces with movement.), WD/WN HEENT: PERRL/EOMI, Moist Mucous Membranes; No Pale Conjunctivae (L), No Pale Conjunctivae (R), No Scleral Icterus (L), No Scleral Icterus (R) Neck: Normal Inspection, Non Tender, Supple; No Lymphadenopathy (L), No Lymphadenopathy (R) Respiratory: Lungs Clear, Normal Breath Sounds, No Accessory Muscle Use, No Respiratory Distress, Other (Pain over left chest wall) Cardiovascular: Regular Rate, Rhythm, No Edema, Normal Peripheral Pulses Extremity: Normal Inspection, Non Tender, No Pedal Edema Neurologic/Psychiatric: Alert, Oriented x3, No Motor/Sensory Deficits, Normal 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
[2022-02-18] MEDS ORDERED: ACET-2267 PO (10:03)
[2022-02-18] MEDS ORDERED: IBUP-2473 PO (10:03)
--- NOTE | 2022-02-18 11:04 | Progress Note ---
Standard Progress Note Progress Notes/Assess & Plan Date Seen by a Provider: Feb 18, 2022 Time Seen by a Provider: 07:45 Progress/Assessment & Plan Consulted for pain management for multiple left sided rib fractures. Discussed options with patient including ultrasound guided blocks and a thoracic epidural. Pt given all information to make an informed decision. After further conversation with pt, the plan was to follow up in an hour or so while pt contemplated previously discussed pain management options. NADER JOHNSTON CRNA Feb 18, 2022 11:04
--- NOTE | 2022-02-18 11:18 | Progress Note ---
Standard Progress Note Progress Notes/Assess & Plan Date Seen by a Provider: Feb 18, 2022 Time Seen by a Provider: 09:34 Progress/Assessment & Plan Follow up conversation regarding pain management for multiple left sided rib fractures. Family at bedside so all previously discussed pain management options explained and questions answered. Pt stated pain is significantly better than last night. He would discuss things with family and continue to monitor his pain levels. I explained I was available if they decided they needed anything I could provide. NADER JOHNSTON CRNA Feb 18, 2022 11:18
[2022-02-18] MEDS: ONDANSETRON 4 MG/2 ML (SDV) Z0FRAN IV PRN (16:53)
[2022-02-18] MEDS ORDERED: NS IV 1000 ML 1,000 ML IV SCH (19:00)
[2022-02-18] MEDS ORDERED: NS IV 1000 ML 1,000 ML ONE (19:15)
[2022-02-19] MEDS: morphine INJ 4 MG/ML 1 ML (VIAL/SYRINGE) IV PRN ×5 (00:53→10:58)
[2022-02-19 04:36] LABS: BASOPHILS # (AUTO) 0.1 10^3/uL (0.0-0.1); BASOPHILS % (AUTO) 1 % (0-10); EOSINOPHILS # (AUTO) 0.3 10^3/uL (0.0-0.3); EOSINOPHILS % (AUTO) 3 % (0-10); HEMATOCRIT 47 % (40-54); HEMOGLOBIN 15.1 g/dL (13.3-17.7); LYMPHOCYTES # (AUTO) 1.7 10^3/uL (1.0-4.0); LYMPHOCYTES % (AUTO) 19 % (12-44); MEAN CORPUSCULAR HEMOGLOBIN 30 pg (25-34); MEAN CORPUSCULAR HGB CONC 32 g/dL (32-36); MEAN CORPUSCULAR VOLUME 95 fL (80-99); MEAN PLATELET VOLUME 10.1 fL (9.0-12.2); MONOCYTES # (AUTO) 0.9 10^3/uL (0.0-1.0); MONOCYTES % (AUTO) 10 % (0-12); NEUTROPHILS # (AUTO) 6.1 10^3/uL (1.8-7.8); NEUTROPHILS % (AUTO) 68 % (42-75); PLATELET COUNT 208 10^3/uL (130-400); WHITE BLOOD COUNT 9.1 10^3/uL (4.3-11.0)
[2022-02-19 04:59] LABS: BAND NEUTROPHILS 0 %; BASOPHILS % (MANUAL) 0 %; EOSINOPHILS % (MANUAL) 3 %; LYMPHOCYTES % (MANUAL) 28 %; MONOCYTES % (MANUAL) 9 %; NEUTROPHILS % (MANUAL) 57 %; RBC MORPH NORMAL; REACTIVE LYMPHOCYTES 3 %
[2022-02-19 05:02] LABS: ALBUMIN 4.6 GM/DL (3.2-4.5); CHLORIDE 104 MMOL/L (98-107); POTASSIUM 4.2 MMOL/L (3.6-5.0); SODIUM 141 MMOL/L (135-145)
[2022-02-19 05:04] LABS: CALCIUM 8.8 MG/DL (8.5-10.1)
[2022-02-19 05:05] LABS: GLUCOSE 100 MG/DL (70-105); TOTAL PROTEIN 7.2 GM/DL (6.4-8.2)
[2022-02-19 05:06] LABS: BILIRUBIN,TOTAL 1.3 MG/DL (0.1-1.0); CARBON DIOXIDE 23 MMOL/L (21-32)
[2022-02-19 05:08] LABS: ALKALINE PHOSPHATASE 45 U/L (40-136); CREATININE SERUM 0.89 MG/DL (0.60-1.30); GFR ESTIMATED 111; PHOSPHORUS 3.3 MG/DL (2.3-4.7)
[2022-02-19 05:09] LABS: BUN/CREATININE RATIO 7
[2022-02-19 05:11] LABS: ALANINE AMINOTRANSFERASE 19 U/L (0-55); MAGNESIUM 2.1 MG/DL (1.6-2.4)
[2022-02-19] MEDS: POTASSIUM CL 10MEQ/50ML IVPB 50 ML IV SCH ×2 (05:16→07:35)
[2022-02-19] MEDS: KCL 20 MEQ TAB (K-DUR) PO SCH (05:16)
[2022-02-19] MEDS: MAGNESIUM 1 GM/100 ML IVPB 100 ML IV SCH ×2 (05:16→07:36)
--- NOTE | 2022-02-19 07:00 | Progress Note - Surgery ---
ANITA FRYE 02/19/22 0700: Subjective Date Seen by a Provider: Feb 19, 2022 Time Seen by a Provider: 06:40 Subjective/Events-last exam Mr. Henning is being seen in follow-up for left rib fractures and grade I splenic laceration. He spoke with anesthesia yesterday and is not doing the epidural at this time. This morning he reports his pain as a 6/10, decreased from an 8/10 yesterday. His pain is still in the same location. He is using his ICS. He was able to walk from his room in the ICU down the hallway yesterday. He reported associated pain with walking but not enough pain to discourage him. He is receiving IV morphine 5mg q2h for pain control alongside oral Lortab. Review of Systems General: No Chills, No Fatigue HEENT: No Head Aches, No Visual Changes Pulmonary: No Dyspnea, No Cough; Pleuritic Chest Pain Cardiovascular: No: Chest Pain, Palpitations Gastrointestinal: No: Nausea, Vomiting, Abdominal Pain Musculoskeletal: other (Chest/rib pain); No: leg pain Neurological: No: Weakness, Confusion Objective Exam Vital Signs Date Time Temp Pulse Resp B/P (MAP) Pulse Ox O2 Delivery O2 Flow Rate FiO2 02/19/22 06:00 57 12 139/92 96 Nasal Cannula 2.00 02/19/22 05:00 75 12 137/93 94 Nasal Cannula 2.00 02/19/22 04:00 78 12 136/96 94 Nasal Cannula 2.00 02/19/22 03:20 97 Nasal Cannula 2.00 02/19/22 03:00 55 15 139/97 94 Nasal Cannula 2.00 02/19/22 02:00 73 20 132/56 94 Nasal Cannula 2.00 02/19/22 01:00 55 02/19/22 01:00 55 24 143/101 95 Nasal Cannula 2.00 02/19/22 00:00 52 12 140/76 95 Nasal Cannula 2.00 02/18/22 23:20 36.5 55 15 95 Nasal Cannula 2.00 02/18/22 23:20 95 Nasal Cannula 2.00 02/18/22 23:00 56 13 124/97 96 Nasal Cannula 2.00 02/18/22 22:13 Nasal Cannula 2.00 02/18/22 22:00 61 14 132/96 90 Room Air 02/18/22 21:00 70 13 136/91 93 Room Air 02/18/22 20:00 71 13 123/78 92 Room Air 02/18/22 19:25 95 Room Air 02/18/22 19:00 54 12 135/77 90 Room Air 02/18/22 19:00 54 02/18/22 19:00 36.2 64 16 135/77 95 Room Air 02/18/22 18:00 64 26 121/81 93 Nasal Cannula 2.00 02/18/22 17:00 66 18 96 Nasal Cannula 2.00 02/18/22 16:00 96 Room Air 02/18/22 16:00 54 8 92 Nasal Cannula 2.00 02/18/22 15:41 36.5 02/18/22 15:00 55 9 92 Nasal Cannula 2.00 02/18/22 14:00 61 16 147/83 94 Nasal Cannula 2.00 02/18/22 13:00 58 14 127/89 97 Nasal Cannula 2.00 02/18/22 12:55 69 02/18/22 12:00 97 Room Air 02/18/22 12:00 83 34 117/81 91 Nasal Cannula 2.00 02/18/22 11:00 52 10 120/85 97 Nasal Cannula 2.00 02/18/22 10:00 67 14 124/75 96 Nasal Cannula 2.00 02/18/22 09:41 95 02/18/22 09:00 48 7 125/84 96 Nasal Cannula 2.00 02/18/22 08:00 98 Nasal Cannula 2.00 02/18/22 08:00 36.3 02/18/22 08:00 55 12 122/89 100 Nasal Cannula 2.00 02/18/22 07:00 54 8 119/77 95 Nasal Cannula 2.00 02/18/22 07:00 57 I & O 02/19/22 07:00 Intake Total 3875 ml Output Total 4675 ml Balance -800 ml Capillary Refill : Less Than 3 Seconds General Appearance: No Apparent Distress (Occasionally winces with movement.), WD/WN HEENT: PERRL/EOMI, Moist Mucous Membranes; No Pale Conjunctivae (L), No Pale Conjunctivae (R) Neck: Normal Inspection, Non Tender, Supple; No Lymphadenopathy (L), No Lymphadenopathy (R) Respiratory: No Chest Non Tender; Lungs Clear, Normal Breath Sounds, No Accessory Muscle Use, No Respiratory Distress, Other (Pain over left chest wall) Cardiovascular: Regular Rate, Rhythm, No Edema, Normal Peripheral Pulses Gastrointestinal: non tender, soft, no organomegaly Extremity: Normal Inspection, Non Tender, No Pedal Edema Neurologic/Psychiatric: Alert, Oriented x3, No Motor/Sensory Deficits, Normal Mood/Affect, 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7, Monocytes # (Auto) 0.9, Eosinophils # (Auto) 0.3, Basophils # (Auto) 0.1, Immature Granulocyte # (Auto) 0.0, Neutrophils % (Manual) 57, Lymphocytes % (Manual) 28, Monocytes % (Manual) 9, Eosinophils % (Manual) 3, Basophils % (Ma nual) 0, Band Neutrophils 0, Reactive Lymphocytes 3, Blood Morphology Comment NORMAL, Sodium Level 141, Potassium Level 4.2, Chloride Level 104, Carbon Dioxide Level 23, Anion Gap 14, Blood Urea Nitrogen 6L, Creatinine 0.89, Estimat Glomerular Filtration Rate 111, BUN/Creatinine Ratio 7, Glucose Level 100, Calcium Level 8.8, Corrected Calcium , Phosphorus Level 3.3, Magnesium Level 2.1, Total Bilirubin 1.3H, Aspartate Amino Transf (AST/SGOT) 24, Alanine Aminotransferase (ALT/SGPT) 19, Alkaline Phosphatase 45, Total Protein 7.2, Albumin 4.6H Assessment/Plan Assessment/Plan Assessment/Plan Assessment: Splenic laceration - Likely grade I laceration - No obvious signs of hematoma or acute bleeding Rib fractures - Left ribs 5-11. CT confirmed - No signs of flail chest or other acute abnormalities Leukocytosis, resolved - Trend Left pleural effusion - Small, confirmed on CXR. - Continue to monitor. No signs of pneumothorax Excessive alcohol use Substance use Plan: Continue IVF and pain control as needed. Currently receiving Lortab, metho carbamol, and IV morphine. Attempt to wean off of IV pain medicine as tolerated and switch to PO control Anesthesia has been consulted regarding epidural for pain relief. Patient has elected not to do an epidural at this time. Encourage ambulation and ICS to help prevent pneumonia or atelectasis SCD for DVT ppx. Hold anticoagulation d/t splenic laceration Monitor Hgb level closely and watch for signs of acute bleed d/t splenic laceration Conservative management for splenic laceration at this time. No surgical intervention needed at this time. Consider moving from ICU to 4th floor VENKAT ALLISON DO 02/19/22 1600: Subjective Subjective/Events-last exam Still with left sided chest wall pain. No abdominal pain. Currently 6/10 pain. Requiring Iv pain medication. Declined thoracic epidural or block. Using incentive spirometer and ambulating. Hgb stable. Denies n/v fever sweats chills shortness of breath. Objective Exam General Appearance: No Apparent Distress (Occasionally winces with movement.), WD/WN HEENT: PERRL/EOMI, Normal ENT Inspection Neck: Normal Inspection, Non Tender, Supple Respiratory: Chest Non Tender, No Accessory Muscle Use, No Respiratory Distress, Other (Pain over left chest wall) Cardiovascular: Regular Rate, Rhythm, No JVD Gastrointestinal: non tender, soft, no organomegaly Extremity: Normal Inspection, Non Tender Neurologic/Psychiatric: Alert, Oriented x3, No Motor/Sensory Deficits, Normal Mood/Affect Skin: Normal Color, Warm/Dry Lymphatic: No Adenopathy (Head and neck) Assessment/Plan Assessment/Plan Assessment/Plan Collision while playing softball splenic laceration appears to be grade 1 Rib fractures left side 5 through 11 Left pleural effusion Excessive alcohol use Substance use Pain control as needed. Currently receiving Lortab, methocarbamol, and morphine. Anesthesia has been consulted regarding thoracic epidural or block for pain relief-patient has declined to proceed with any of these treatments Encourage incentive spirometer to help prevent pneumonia or atelectasis SCD for DVT ppx. Hold anticoagulation d/t splenic laceration Monitor Hgb level closely and watch for signs of acute bleed d/t splenic laceration hemoglobin stable at this time. Conservative management for splenic laceration at this time. No surgical intervention needed at this time. Diet as tolerates Appreciate tele-ICU consult Discussed pain control plan and in order for discharge needs to be controlled with oral only. Move to 4th floor. Supervisory-Addendum Brief Verification & Attestation Participated in pt care: history, MDM, physical Personally performed: exam, history, MDM, supervision of care Care discussed with: Medical Student Procedures: n/a Results interpretation: Verified all documentation Verification and Attestation of Medical Student E/M Service A medical student performed and documented this service in my presence. I reviewed and verified all information documented by the medical student and made modifications to such information, when appropriate. I personally performed the physical exam and medical decision making. Venkat Allison, Feb 19, 2022,16:03 ANITA FRYE Feb 19, 2022 07:00 VENKAT ALLISON DO Feb 19, 2022 16:00
[2022-02-19] MEDS: METHOCARBAMOL 500 MG (ROBAXIN) TABLET PO SCH ×4 (07:48→20:21)
[2022-02-19] MEDS: ONDANSETRON 4 MG/2 ML (SDV) Z0FRAN IV PRN (08:44)
[2022-02-19] MEDS: DOCUSATE SODIUM 100 MG (COLACE) CAP PO SCH (20:21)
[2022-02-20 05:46] LABS: BASOPHILS % (AUTO) 1 % (0-10); EOSINOPHILS # (AUTO) 0.3 10^3/uL (0.0-0.3); EOSINOPHILS % (AUTO) 3 % (0-10); HEMATOCRIT 43 % (40-54); HEMOGLOBIN 13.9 g/dL (13.3-17.7); LYMPHOCYTES % (AUTO) 25 % (12-44); MEAN CORPUSCULAR HEMOGLOBIN 30 pg (25-34); MEAN CORPUSCULAR HGB CONC 32 g/dL (32-36); MEAN CORPUSCULAR VOLUME 93 fL (80-99); MEAN PLATELET VOLUME 10.2 fL (9.0-12.2); MONOCYTES # (AUTO) 0.8 10^3/uL (0.0-1.0); MONOCYTES % (AUTO) 10 % (0-12); NEUTROPHILS # (AUTO) 4.9 10^3/uL (1.8-7.8); NEUTROPHILS % (AUTO) 62 % (42-75); PLATELET COUNT 203 10^3/uL (130-400)
[2022-02-20 06:11] LABS: ALBUMIN 4.3 GM/DL (3.2-4.5); BILIRUBIN,TOTAL 0.9 MG/DL (0.1-1.0); CALCIUM 8.8 MG/DL (8.5-10.1); CREATININE SERUM 0.93 MG/DL (0.60-1.30); MAGNESIUM 1.8 MG/DL (1.6-2.4); POTASSIUM 3.6 MMOL/L (3.6-5.0); TOTAL PROTEIN 6.7 GM/DL (6.4-8.2)
[2022-02-20] MEDS: KCL 20 MEQ TAB (K-DUR) PO SCH (08:23)
[2022-02-20] MEDS: METHOCARBAMOL 500 MG (ROBAXIN) TABLET PO SCH ×2 (08:23→13:32)
[2022-02-20] MEDS: DOCUSATE SODIUM 100 MG (COLACE) CAP PO SCH (08:24)
[2022-02-20] MEDS ORDERED: DOCU-143 PO (12:06)
[2022-02-20] MEDS ORDERED: ACHYD1T PO (12:06)
[2022-02-20] MEDS ORDERED: METH-731 PO (12:06)
--- NOTE | 2022-02-20 12:09 | Discharge Inst-Simple/Standard ---
Discharge Inst-Standard Discharge Medications New, Converted or Re-Newed RX: Transmitted to Pharmacy Patient Instructions/Follow Up Plan of Care/Instructions/FU: 2 weeks Estefany Activity as Tolerated: No Discharge Diet: Regular Diet Other Inst to Patient Follow up Appt: Make appointment for 2 week. Instructions: No lifting greater than 10 pounds. No strenuous activity. May shower, tub bath or soaking. Use incentive spirometer at home as directed. No Smoking Symptoms to Report: Appetite Changes, Extremity Discoloration, Numbness/Tingling, Swelling Increased, Bleeding Excessive, Eyesight Changes, Pain Increased, Urine Color Change, Constipation(Persistent), Fever over 101 degree F, Pain/Pressure in chest, Urinating Difficulty, Cough Up/Vomit Blood, Heart Beat Irreg/Pounding, Pain/Pressure in jaw, Vaginal Bleeding Increase, Cramps in feet or legs, Lightheadedness, Pain/Pressure in shoulder, Diarrhea(Persistent), Memory Changes Suddenly, Questions/Concerns, Weight gain consecutive days, Dizziness/Fainting, Nausea/Vomiting, Shortness of Breath, Weight gain over 2 pounds If questions or concerns contact your physician Or seek help at emergency department. VENKAT SIMEON DO Feb 20, 2022 12:09
--- NOTE | 2022-02-20 12:17 | Progress Note - Surgery ---
Subjective Date Seen by a Provider: Feb 20, 2022 Time Seen by a Provider: 12:11 Subjective/Events-last exam Patient pain controlled with oral pain medications. Using IS. No abdominal pain. Wanting to go home. Denies n/v fever sweats chills shortness of breath or chest pain. Hgb stable. Objective Exam Vital Signs Date Time Temp Pulse Resp B/P (MAP) Pulse Ox O2 Delivery O2 Flow Rate FiO2 02/20/22 09:06 Room Air 02/20/22 07:25 36.5 72 19 132/86 94 Room Air 02/20/22 03:24 36.5 74 18 146/90 94 Room Air 02/19/22 23:52 36.6 84 18 136/76 91 Room Air 02/19/22 20:27 Room Air 02/19/22 20:23 36.6 86 18 131/91 91 Room Air 02/19/22 15:50 36.8 71 18 136/82 95 02/19/22 15:45 36.0 02/19/22 15:12 Nasal Cannula 2.00 02/19/22 15:00 56 9 141/89 95 Nasal Cannula 2.00 02/19/22 14:00 58 8 141/71 94 Room Air 02/19/22 13:00 58 02/19/22 13:00 65 9 137/87 88 Room Air I & O 02/20/22 06:59 Intake Total 1600 ml Output Total 1100 ml Balance 500 ml Capillary Refill : NONE General Appearance: No Apparent Distress, WD/WN HEENT: PERRL/EOMI, Normal ENT Inspection Neck: Normal Inspection, Non Tender, Supple Respiratory: Chest Non Tender, No Accessory Muscle Use, No Respiratory Distress, Other (Pain over left chest wall) Cardiovascular: Regular Rate, Rhythm, No JVD Gastrointestinal: non tender, soft, no organomegaly Extremity: Normal Inspection, Non Tender Neurologic/Psychiatric: Alert, Oriented x3, No Motor/Sensory Deficits, Normal Mood/Affect Skin: Normal Color, Warm/Dry Lymphatic: No Adenopathy (Head and neck) Results Lab Laboratory Tests 02/20/22 05:00: White Blood Count 8.0, Red Blood Count 4.64, Hemoglobin 13.9, Hematocrit 43, Mean Corpuscular Volume 93, Mean Corpuscular Hemoglobin 30, Mean Corpuscular Hemoglobin Concent 32, Red Cell Distribution Width 12.6, Platelet Count 203, Mean Platelet Volume 10.2, Immature Granulocyte % (Auto) 0, Neutrophils (%) (Auto) 62, Lymphocytes (%) (Auto) 25, Monocytes (%) (Auto) 10, Eosinophils (%) (Auto) 3, Basophils (%) (Auto) 1, Neutrophils # (Auto) 4.9, Lymphocytes # (Auto) 2.0, Monocytes # (Auto) 0.8, Eosinophils # (Auto) 0.3, Basophils # (Auto) 0.0, Immature Granulocyte # (Auto) 0.0, Sodium Level 141, Potassium Level 3.6, Chloride Level 100, Carbon Dioxide Level 25, Anion Gap 16H, Blood Urea Nitrogen 7, Creatinine 0.93, Estimat Glomerular Filtration Rate 106, BUN/Creatinine Ratio 8, Glucose Level 102, Calcium Level 8.8, Corrected Calcium 8.6, Phosphorus Level 3.0, Magnesium Level 1.8, Total Bilirubin 0.9, Aspartate Amino Transf (AST/SGOT) 24, Alanine Aminotransferase (ALT/SGPT) 18, Alkaline Phosphatase 43, Total Protein 6.7, Albumin 4.3 Microbiology 02/17/22 MRSA Screen - Final, Complete MRSA not isolated Assessment/Plan Assessment/Plan Assessment/Plan Collision while playing softball splenic laceration appears to be grade 1 Rib fractures left side 5 through 11 Left pleural effusion Excessive alcohol use Substance use Pain control as needed. Currently controlled on oral medications Anesthesia was consulted regarding thoracic epidural or block for pain relief- patient has declined to proceed with any of these treatments Encourage incentive spirometer to help prevent pneumonia or atelectasis SCD for DVT ppx. Hold anticoagulation d/t splenic laceration Monitor Hgb level closely and watch for signs of acute bleed d/t splenic laceration hemoglobin stable at this time. Conservative management for splenic laceration at this time. No surgical intervention needed at this time. Diet as tolerates Patient wanting to discharge home, and will arrange follow up. Any issues be reevaluated at that time. VENKAT SIMEON DO Feb 20, 2022 12:17
--- NOTE | 2022-02-21 01:27 | DISCHARGE SUMMARY ---
DATE OF SERVICE: ADMITTING DIAGNOSES: Collision while playing softball, splenic laceration, grade I. Rib fractures, left side 5 through 11. Left pleural effusion, excessive alcohol use, substance use. DISCHARGE DIAGNOSES: Collision while playing softball, splenic laceration, grade I. Rib fractures, left side 5 through 11. Left pleural effusion, excessive alcohol use, substance use. HOSPITAL COURSE: The patient is a 41-year-old male who presented to the Emergency Department after a collision while playing softball having left sided chest pain, had chest x-ray demonstrating displaced left 10th rib fracture, other rib fractures and small effusion. The patient had a CT of the chest, abdomen and pelvis demonstrating multiple fractures of the left through the 11th ribs. A small left pleural effusion, no pneumothorax. Small splenic laceration and contusion. No surrounding hematoma. The patient was admitted to the Intensive Care Unit where the patient was given pain control and monitoring. The patient declined any thoracic epidural or any blocks that were presented by anesthesia. The patient's hemoglobin remained stable throughout hospital course and was able to be moved to the floor on 02/19/2022. He had adequate pain control. He converted to oral pain medication, which provided adequate pain control with just oral medications on 02/20/2022 and the patient was able to be discharged home. ADMITTING PHYSICIAN: Dr. Allison. CONSULTING PHYSICIANS: Janett Lopez. Trevon Azar for anesthesia. Please see computer for discharge medications and instructions. Job ID: [id number] DocumentID: [id number] Dictated Date: 02/20/2022 12:21:20 Inspector Circuitry Negative Date: 02/21/2022 01:27:04 Dictated By: VENKAT ALLISON DO
== END 2022-02-20 14:00 | disposition home or self-care (01) | DRG 814 ==
LOC: EDUNIT# 20:14 → ER 20:18 → ICU 21:45 → 4TH 02-19 15:46
PROVIDERS: ADMIT Surgery; ATTEND Surgery
DX: S36.039A Unspecified laceration of spleen, initial encounter (principal); J96.00 Acute respiratory failure, unspecified whether with hypoxia or hypercapnia; S22.42XA Multiple fractures of ribs, left side, initial encounter for closed fracture; J90 Pleural effusion, not elsewhere classified; N17.9 Acute kidney failure, unspecified; Z72.89 Other problems related to lifestyle; F19.10 Other psychoactive substance abuse, uncomplicated; W51.XXXA Accidental striking against or bumped into by another person, initial encounter; Z87.891 Personal history of nicotine dependence; D72.829 Elevated white blood cell count, unspecified
CPT/HCPCS: 36415; 71045; 71260; 74177; 80053; 80306; 80320; 81000; 82550; 82553; 83735; 83874; 83880; 84100; 84484; 85007; 85025; 85027; 85610; 85730; 86850; 86900; 86901; 87081; 93005; 93041; 94664